=== PATIENT | male | born 1960 | race Caucasian/White ===

== ENCOUNTER 2016-09-23 22:57 | Emergency (ER) | payer BC ==
[~2016-09-23] VITALS: Ht 188 cm; Wt 100.4 kg
[2016-09-23 23:02] VITALS: BP 115/73; PULSE 87; TEMP 36.8; O2SAT 92; Ht 188 cm; Wt 100.4 kg
--- NOTE | 2016-09-23 23:17 | EMERGENCY ROOM VISIT NOTE ---
History First contact with patient: 23:09 Chief Complaint: OTHER COMPLAINT Stated Complaint: IV PORT IN ARM NEEDS REMOVED History of Present Illness The patient is a 56 year old male who presents to the Emergency Room requesting a peripheral IV line be removed. The patient reports that he underwent colonoscopy at a hospital in [place], [place]. They discharged him without removing the IV. The family is here for a sports tournament. The patient did call the hospital in [place], and was instructed to remove it himself. The patient felt more comfortable coming to the emergency department. He denies any pain about the IV site. Review of Systems 6 system review was performed and was negative except for pertinent positives and negatives as indicated in history of present illness Past Medical/Surgical History Medical Problems: (1) Coronary artery disease Surgical Problems: (1) History of coronary artery stent placement Family History FH: cancer Social History Smoking Status: Never Smoker Alcohol Use: none Housing Status: lives alone Occupation Status: employed Physical Exam Vital Signs Date Time Temp Pulse Resp B/P Pulse Ox O2 Delivery O2 Flow Rate FiO2 09/23/16 23:02 36.8 87 18 115/73 92 Room Air Physical Exam CONSTITUTIONAL: Healthy and well nourished. Alert and oriented X 3 with positive affect. HEENT: Normocephalic, atraumatic. Pupils equal, round and reactive. NECK: Full active range of motion without discomfort. RESPIRATORY: Clear to auscultation bilaterally with no wheezing, crackles, rhonchi or stridor. CARDIOVASCULAR: Regular rate and rhythm with no murmurs, rubs or gallops. MUSCULOSKELETAL: Full range of motion of all joints without discomfort. INTEGUMENTARY: Examination shows a peripheral IV site in the left dorsal forearm. There is no infiltration. NEUROLOGIC: No focal neurologic deficits noted. Medical Decision & Procedures ED Course Patient history and physical exam were performed. The peripheral IV was removed. 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 Impression Primary Impression: Peripheral IV removal Departure Information Dispostion Home / Self-Care Forms HOME CARE DOCUMENTATION FORM, IMPORTANT VISIT INFORMATION Patient Instructions My [facility] Additional Instructions Follow-up with your manga artist as instructed
== END 2016-09-23 23:15 | disposition home or self-care (01) ==
LOC: C.EDB 22:59 → C.EDD 23:15
DX: Z45.2 Encounter for adjustment and management of vascular access device (principal); I25.10 Atherosclerotic heart disease of native coronary artery without angina pectoris; Z80.9 Family history of malignant neoplasm, unspecified